=== PATIENT | female | born 1945 | race Caucasian/White ===

== ENCOUNTER 2017-10-17 07:53 | Day surgery (SDC) | payer MEDICARE ==
[2017-10-17] MEDS ORDERED: Propofol 10 mg/ml Inj (20 ML) ONE (09:12)
[2017-10-17] MEDS ORDERED: Midazolam 2 MG/2 ML VIAL ONE (09:28)
[2017-10-17] MEDS ORDERED: Lactated Ringer's 1,000 ML IV ONE (09:30)
[2017-10-17 14:00] VITALS: TEMP 97.1; O2SAT 100
[2017-10-17 14:07] VITALS: BP 102/47; PULSE 63; RESP 18
== END 2017-10-17 11:40 | disposition home or self-care (01) ==
LOC: C.ENDO 07:53
PROVIDERS: ATTEND Internal Medicine Gastroenterology
DX: Z12.11 Encounter for screening for malignant neoplasm of colon (principal); K59.00 Constipation, unspecified; E78.5 Hyperlipidemia, unspecified; Z87.891 Personal history of nicotine dependence; M81.0 Age-related osteoporosis without current pathological fracture; K64.1 Second degree hemorrhoids
CPT/HCPCS: 45378; J2001; J2250; J2704; J7120